=== PATIENT | female | born 2000 | race Two or more races ===

== ENCOUNTER 2023-09-23 11:17 | Outpatient (REF) | payer OTHER, SELFPAY ==
--- NOTE | ~2023-09-23 | US_ITS ---
EXAMINATION: US PELVIS COMPLETE CLINICAL INFORMATION: Pelvic pain COMPARISON: None TECHNIQUE: Transabdominal imaging was performed. FINDINGS: The uterus is of normal size and echogenicity measuring 7.8 x 4.2 x 4.4 cm. A regular homogeneous endometrium is identified measuring 1.4 cm. Both ovaries are of normal size and echogenicity. The right measures 2.3 x 1.3 x 1.5 cm for a volume of 2.3 mL. The left measures 2.1 x 2.6 x 2.1 cm for a volume of 6.1 mL. There is trace simple physiologic volume pelvic free fluid. US/US pelvic and transvaginal IMPRESSION: Unremarkable pelvic ultrasound.
== END 2023-09-23 11:18 | disposition home or self-care (01) ==
LOC: HO.UMASIMG 11:17
PROVIDERS: PCP Family Medicine; Visit Provider Family Medicine
DX: R10.2 Pelvic and perineal pain (principal)
CPT/HCPCS: 76830; 76856